=== PATIENT | female | born 1940 | race Caucasian/White ===

== ENCOUNTER 2016-08-03 08:20 | Outpatient (CLI) | payer OTHER, BC ==
[2016-08-03] MEDS ORDERED: MIDAZOLAM 2 MG/2 ML VIAL ONE (08:42)
[2016-08-03] MEDS ORDERED: fentaNYL 100 MCG/2 ML INJ ONE (08:43)
[2016-08-03] MEDS ORDERED: LIDOCAINE 1% 30 ML SDV ONE (08:47)
[2016-08-03] MEDS ORDERED: NA BICARBONATE 50 MEQ/50 ML VIAL ONE (08:47)
[2016-08-03] MEDS ORDERED: IOPAMIDOL (ISOVUE-M 300) 15 ML VIAL IV ONE ×2 (08:48→08:50)
[2016-08-03 09:30] LABS: INR 0.99 (0.83-1.16)
--- NOTE | 2016-08-03 14:07 | DX ---
Cervical Myelogram with intravenous moderate conscious sedation History: Bilateral arm weakness, gait disturbance, previous cervical fusion and lumbar fusion. Intravenous moderate sedation: After witnessed informed consent was obtained. Moderate sedation was p erformed with the uneventful intravenous administration of Versed 1.5 mg and fentanyl 100 mcg over 49 minutes, [id number] hours, under the supervision of the radiology nurse and consenting radiologist. N o immediate complications. Witnessed Consent: Witnessed informed consent was obtained after the risks, benefits, and alternativ es of cervical myelography via lumbar puncture approach. were explained to the patient and all questi ons were answered. Timeout performed. PQRS Crosscutting Measure: Tobacco use: No. Fluoroscopy time: 2.7 minutes. Dose 48.6 mGy. Technique: With the patient in prone oblique position, the patient's back was prepped with Betadine a nd alcohol solution. Lidocaine with bicarbonate was used as local anesthesia. Then, with fluoroscopic guidance, a 25-gauge spinal needle was advanced into the right L4 interlaminar space. Clear cerebros michell fluid was identified. Then, 9 mL of Isovue-M 300 were placed under fluoroscopic guidance into t he thecal sac. Needle was removed. Manual hemostasis was achieved. Patient tolerated the procedure we ll without immediate complications. Digital images were obtained in multiple projections. Patient was sent for CT imaging. Patient disposition: Discharge instructions were given. No immediate complications. Myelogram Findings intrathecal: Contrast region cervical spine. Please see CT cervical myelogram repo rt. Impression: Successful myelography.
--- NOTE | 2016-08-03 14:12 | CT ---
CT Myelogram of the cervical Spine (With Intrathecal Contrast) (With Multiplanar Reconstructions) Clinical Indications: Bilateral upper extremity weakness and gait disturbance, previous cervical fus ion. Comparison: CT myelogram of April 2013. Technique: Thinly collimated multidetector helical CT imaging of the cervical spine was reviewed in multiple planes. Contrast dose was 9 mL Isovue-M 300 intrathecally during myelogram. Study performed after lumbar myelography. Multiplanar reconstructions reviewed on [employer] workstation and performed to better evaluate alignment. Dose reduction techniques were utilized. Findings: Myelogram contrast throughout the subarachnoid space. Anterior cervical fusion plate and s crews at T5 and T7 with T6 corpectomy and prosthesis. Bilateral posterior transpedicular screws and r ods at C5, C6, and T1. Hardware appears intact. No evidence of cervical compression fractures or destructive osseous lesions. No acute spinous proces s fractures. No evidence of craniocervical stenosis or cord compression. Degenerative osteophytes at C1 and the od ontoid anteriorly without fracture. C2-C3: Mild bilateral facet arthropathy without significant central canal or neural foraminal stenosi s. C3-C4: Mild degenerative disk disease and ventral osteophytes with mild left facet arthropathy and bi lateral uncovertebral osteophytes . No neural foraminal stenosis or central canal stenosis. C4-C5: Moderate degenerative disk disease with ventral osteophytes and right paramedian dorsal disk/o steophyte complex, resulting in mild central canal stenosis with right uncovertebral osteophytes, als o resulting in mild to moderate right neural foraminal stenosis. No left neural foraminal stenosis. C5-C6: Postsurgical changes without bony central canal or neural foraminal stenosis. C6-C7: Postsurgical changes without central canal or neural foraminal stenosis. C7-T1: Postsurgical changes without central canal or neural foraminal stenosis. T1-T2: Moderate degenerative disk disease with moderate loss of disk height, predominantly ventral os teophytes. No central canal stenosis or neural foraminal stenosis. Impression: 1. Successful cervical myelogram without cord compression or deformity. 2. Postsurgical changes from C5-C6 through C7-T1, without bony central canal or neural foraminal sten osis. 3. C4-C5: Mild central canal stenosis and mild to moderate right neural foraminal stenosis, secondary to moderate degenerative disk disease with right paramedian dorsal disk/osteophyte complex and right uncovertebral osteophyte. 4. Please see above findings. 5. Moderate bilateral carotid atherosclerotic calcified plaque. Patient had carotid Doppler study on June 2016.
== END 2016-08-03 11:45 | disposition home or self-care (01) ==
LOC: FIMAGING 08:20
PROVIDERS: ATTEND Neurological Surgery
PROC: 3E0R3KZ Introduction of Other Diagnostic Substance into Spinal Canal, Percutaneous Approach (ICD-10-PCS; principal; 2016-08-03 10:25)
DX: M50.321 Other cervical disc degeneration at C4-C5 level (principal); M99.71 Connective tissue and disc stenosis of intervertebral foramina of cervical region
CPT/HCPCS: 62284; 72126; 72240; J2250; J3010; Q9967

== ENCOUNTER → 2016-08-15 | Outpatient (CLI) | payer OTHER, BC ==
[~2016-08-15] MED LIST: IOPAMIDOL (ISOVUE-M 200) 20 ML VIAL IV ONE; LIDOCAINE 1% 30 ML SDV ONE; NA BICARBONATE 50 MEQ/50 ML VIAL ONE
--- NOTE | 2016-08-15 13:30 | CT ---
CT Myelogram of the Thoracic Spine (With Intrathecal Contrast) (With Multiplanar Reconstructions) Clinical Indications: Lower extremity weakness. Previous cervical and lumbar fusion. Back pain. Diff iculty walking. Technique: Thinly collimated multidetector helical CT imaging of the thoracic and lumbar spine was r eviewed in multiple planes. Study performed after lumbar myelography. Multiplanar reconstructions rev iewed on [employer] workstation and performed to better evaluate alignment. Dose reduction techniques wer e utilized. Findings: Myelogram contrast throughout the subarachnoid space. No thoracic compression fractures or destructive osseous lesions. Cervical fusion plate noted to the C7-T1 disk space level. No evidence of thoracic spinal cord atrophy. C7-T1: Bilateral T1 transpedicular screws through the neural foramina. Anterior fusion plate near the C7-T1 disk space level. No bony central canal or neural foraminal stenosis. T1-T2: Mild degenerative disk disease with ventral osteophytes. Minimal dorsal disk/osteophyte comple x. No central canal or neural foraminal stenosis. T2-T3: No disk herniation or stenosis. T3-T4: Mild degenerative disk disease with ventral osteophytes. No disk herniation or stenosis. T4-T5: Mild degenerative disk disease with ventral osteophytes. No disk herniation or stenosis. T5-T6: 3-mm central disk herniation, protrusion, resulting in mild central canal stenosis with mass e ffect and deformity of the ventral aspect of the cord, which is draped over the disk herniation. No s ignificant neural foraminal stenosis. T6-T7: Mild degenerative disk disease with ventral osteophytes. No disk herniation or stenosis. T7-T8: Central 4-mm disk herniation with annular tear and associated osteophytes, resulting in mild c entral canal stenosis with slight cord compression due to the cord draping over the disk herniation. No bony neural foraminal stenosis. T8-T9: Right paramedian 2-mm disk herniation, protrusion, resulting in mild central canal stenosis wi th slight deformity of the ventral right side of the thoracic spinal cord. Dorsal epidural stimulator from T8 through the T10 levels. No neural foraminal stenosis. T9-T10: Moderate degenerative disk disease with ventral osteophytes and 2-mm central disk herniation, protrusion, resulting in mild to moderate central canal stenosis with slight cord compression and de formity. No neural foraminal stenosis. T10-T11: Moderate degenerative disk disease with a right paramedian 5-mm disk herniation, protrusion, with associated osteophytes, resulting in moderate central canal stenosis with ventral right-sided f lattening and compression of the thoracic spinal cord. No significant bony neural foraminal stenosis. T11-T12: Moderate degenerative disk disease with minimal dorsal disk/osteophyte complex, resulting in minimal central canal stenosis without neural foraminal stenosis. T12-L1: Mild degenerative disk disease and mild disk bulge with mild bilateral facet arthropathy, res ulting in mild central canal stenosis without neural foraminal stenosis. Large ventral left-sided ost eophyte. A small hiatal hernia. Moderate atherosclerotic calcification at the thoracic aorta. Coronary artery calcifications partially visualized. Surgical clips in the gallbladder fossa. Impression: 1. Multilevel moderate degenerative disk disease with several disk herniations identified at T5-T6, T 7-T8, T8-T9, T9-T10, and T10-T11, worst at T10-T11, resulting in multilevel mild to moderate central canal stenosis with slight cord compression, most prominent at T7-T8 and T10-T11. 2. T10-T11: Right paramedian disk herniation with osteophytes, resulting in moderate central canal st enosis and cord compression and deformity. CT Myelogram of the Lumbar Spine (With Intrathecal Contrast) (With Multiplanar Reconstructions) Clinical Indications: Lower extremity weakness. Previous cervical and lumbar fusion. Back pain. Diff iculty walking. Technique: Thinly collimated multidetector helical CT imaging of the lumbar spine was reviewed in mu ltiple planes. Study performed after lumbar myelography. Multiplanar reconstructions reviewed on [facility] workstation and performed to better evaluate alignment. Dose reduction techniques were utilized. Findings: Myelogram contrast throughout the subarachnoid space. No lumbar compression fractures or d estructive osseous lesions. Bilateral transpedicular screws at every level from L1 through S1. Anteri or diskectomy with fusion plate and screws at L5-S1. Interbody disk fusion plugs from L1-L2 through L 4-L5. L1-L2: Previous diskectomy and posterior laminectomy with right ventral epidural soft tissue tissue. No significant central canal or neural foraminal stenosis. No evidence of arachnoiditis or nerve root clumping. Conus medullaris ends at the L2 level. Atheroscl erotic abdominal aorta. Sigmoid diverticulosis. L2-L3: Previous diskectomy and posterior laminectomies without bony central canal or neural foraminal stenosis. L3-L4: Previous diskectomy and posterior laminectomies without bony central canal or neural foraminal stenosis. L4-L5: Previous diskectomy and posterior laminectomies without bony central canal and neural foramina l stenosis. L5-S1: Previous diskectomy and posterior laminectomies with moderate bilateral facet arthropathy and dorsal osteophytes from the S1 region, resulting in mild central canal stenosis and moderate to sever e bilateral neural foraminal stenosis, left worse than right. Impression: 1. Lumbar diskectomies from L1 through S1 with transpedicular screws and fusion rods. Hardware appear s . 2. L5-S1: Bilateral facet arthropathy, resulting in mild central canal stenosis and moderate to sever e bilateral neural foraminal stenosis, left worse than right. 3. Please see above findings at specific levels.
--- NOTE | 2016-08-15 16:38 | DX ---
Lumbar and thoracic myelogram History: Back pain, lower extremity weakness, difficulty walking. Witnessed Consent: Witnessed informed consent was obtained after the risks, benefits, and alternativ es of lumbar myelography were explained to the patient and all questions were answered. Timeout performed. PQRS Cross-Cutting Measure: Tobacco use: no. Fluoroscopy time: 2.2 minutes. Dose 101 mGy. Technique: With the patient in prone oblique position, the patient's back was prepped with Betadine a nd alcohol solution. Lidocaine with bicarbonate was used as local anesthesia. Then, with fluoroscopic guidance, a 25-gauge spinal needle was advanced into the L4 interlaminar space. Clear cerebrospinal fluid was identified. Then, 13 mL of [id number] were placed under fluoroscopic guidance into the th ecal sac. Needle was removed. Manual hemostasis was achieved. Patient tolerated the procedure well wi thout immediate complications. Digital images were obtained in multiple projections. Patient was sent for CT imaging. Patient disposition: Discharge instructions were given. No immediate complications. Myelogram Findings: No evidence of spinal block. There is contrast in the lumbar spine extending into the thoracic spine. Lumbosacral fusion hardware from L1 through the sacrum with transpedicular screw s and rods appearing intact. T12-L1, and L1-L2 ventral and epidural impression on the thecal sac. Yefri tral impression on the thecal sac also noted at the T10-T11 level. Impression: Successful thoracic and lumbar myelogram via lumbar puncture approach. Please see CT thor acic and lumbar spine reports.
== END ==
LOC: FIMAGING 08:06
PROVIDERS: ATTEND Neurological Surgery
PROC: B01B1ZZ Fluoroscopy of Spinal Cord using Low Osmolar Contrast (ICD-10-PCS; principal; 2016-08-15)
DX: R26.9 Unspecified abnormalities of gait and mobility (principal); Z98.1 Arthrodesis status
CPT/HCPCS: 62305; 72129; 72132; 72270; Q9966

== ENCOUNTER 2016-10-31 05:51 | Observation (INO) | payer OTHER, BC ==
[2016-10-31] MEDS ORDERED: ceFAZolin 2 GM/DEXTROSE 100 ML IV ONE (06:00)
[2016-10-31] MEDS ORDERED: LIDOCAINE 1% 5 ML SDV ID PRN (06:30)
[2016-10-31] MEDS ORDERED: LR 1,000 ML IV ONE (06:30)
[2016-10-31] MEDS ORDERED: LIDO/EPI 1% **Not for Epidural 20 ML MDV ONE (07:05)
[2016-10-31] MEDS ORDERED: BACITRACIN 50,000 UNITS/10 ML SYR IRR ONE (07:05)
[2016-10-31] MEDS ORDERED: THROMBIN (BOVINE) 5,000 UNIT VIAL TP ONE (07:05)
[2016-10-31] MEDS ORDERED: BUPIVACAINE/EPI 0.25% 30 ML SDV ONE (07:05)
[2016-10-31] MEDS ORDERED: PROPOFOL/EMULSION 500 MG/50 ML BOTTLE IV ONE (07:12)
[2016-10-31] MEDS ORDERED: fentaNYL 100 MCG/2 ML INJ ONE ×2 (07:12→08:22)
[2016-10-31] MEDS ORDERED: METHOCARBAMOL 750 MG TAB PO PRN (07:56)
[2016-10-31] MEDS ORDERED: ONDANSETRON DISINTEGRATING 4 MG TAB PO PRN (07:59)
[2016-10-31] MEDS ORDERED: NALOXONE HCL 0.4 MG/ML INJ IVP PRN (07:59)
[2016-10-31] MEDS ORDERED: HYDROCODONE/APAP 10/325 TAB PO PRN (07:59)
[2016-10-31] MEDS ORDERED: MAGNESIUM HYDROXIDE 30 ML UDCUP PO PRN (07:59)
[2016-10-31] MEDS ORDERED: diphenhydrAMINE 25 MG CAP PO PRN (07:59)
[2016-10-31] MEDS ORDERED: ACETAMINOPHEN 325 MG TAB PO PRN (07:59)
[2016-10-31] MEDS ORDERED: LACTULOSE 20 GM/30 ML UDCUP PO PRN (07:59)
[2016-10-31] MEDS ORDERED: DIAZEPAM 5 MG TAB PO PRN (07:59)
[2016-10-31] MEDS ORDERED: HYDROmorphONE/DILAUDID 1 MG/ML SYR IVP PRN (07:59)
[2016-10-31] MEDS ORDERED: morphINE PCA 30 MG/30 ML PCA IV PRN (07:59)
[2016-10-31] MEDS ORDERED: POLYETHYLENE GLYCOL 3350 17 GM PKT PO PRN (07:59)
[2016-10-31] MEDS ORDERED: ONDANSETRON 4 MG/2 ML VIAL IVP PRN (07:59)
[2016-10-31] MEDS ORDERED: BISACODYL 10 MG SUPP PR PRN (07:59)
[2016-10-31] MEDS ORDERED: DIAZEPAM 10 MG/2 ML SYR IVP PRN (07:59)
[2016-10-31] MEDS ORDERED: NS W/ 20 KCl/L 1,000 ML IV SCH (08:00)
[2016-10-31] MEDS ORDERED: Evolocumab [Repatha Syringe] 140 MG SQ SCH (08:00)
[2016-10-31] MEDS ORDERED: NON-FORMULARY NEW DRUG (Esomeprazole Mag Trihydrate [Nexium] 40 MG) PO SCH (09:00)
[2016-10-31] MEDS ORDERED: FAMOTIDINE 20 MG/NACL 50 ML IV SCH (09:00)
--- NOTE | 2016-10-31 09:25 | SOAPPROG ---
SOAP Progress Note Assessment/Plan: Post Op Visit: S: Awake and alert. NAD. Pt with expected back pain O: AFVSS/PERRLA/EOMI no droop CN 2-12 grossly intact +lt touch 5/5 BUE/BLE = CDI x 2 A/P: 76 yo female that is s/p removal of SCS -orders in place -call with any questions or concerns -take medications as directed -admit for obs overnight 10/31/16 09:22 ICD10 Worksheet Patient Problems: Problems Problem Status Onset Chronic kidney disease, stage III (moderate) Acute Non-cardiogenic pulmonary edema Acute Hypoxia Acute Narcotic overdose Acute Spinal cord stimulator dysfunction Acute - ICD10 Problem Qualifiers (1) Spinal cord stimulator dysfunction Qualifiers: Encounter type: E
--- NOTE | 2016-10-31 10:25 | GOP ---
[f rep st] OPERATIVE REPORT DATE OF OPERATION: 10/31/2016 SURGEON: Bud Hilario MD CARDIOVASCULAR OR NURSE: Fran Callahan PA-C PREOPERATIVE DIAGNOSIS: Failed spinal cord stimulator. POSTOPERATIVE DIAGNOSIS: Failed spinal cord stimulator. PROCEDURE PERFORMED: Removal of posterior paddle type spinal cord stimulator from the thoracic spin e as well as removal of right spinal cord stimulator pulse generator from the right iliac crest patrick on. FINDINGS: ESTIMATED BLOOD LOSS: 10 cc. INDICATIONS: The patient is a 76-year-old with a long history of chronic pain as well as multiple s pine fusion surgeries who desired to have her spinal cord stimulator removed she said that she was n o longer using the stimulator, and it prevented her from getting MRIs. There was nothing mechanical ly wrong with the stimulator, it simply was not providing pain relief that was satisfactory to her, and for these reasons, she wanted to have it removed. The risk of infection, as well as the risk of spinal cord injury was discussed. All of these risks were quite low with removal. She wanted to p roceed despite them. DESCRIPTION OF PROCEDURE: Patient was taken to the operating room, placed in supine position. Gene ral anesthesia was begun. She was flipped prone on the Dominik frame. Care was taken to pad all poi nts of contact. She was sterilely prepped and draped in the usual fashion. A localizing x-ray was taken. We made 2 incisions, 1 at the bottom portion of her spinal cord stimulator electrode in the thoracic region and 1 above the pulse generator. The subcutaneous tissue was dissected using a scal pel blade down to the fascia at both locations, and a plasma blade was used for all other dissection . This was to prevent electric current spread to the spinal cord itself. We removed the pulse gene rator initially and dissected the wires free from this area. Care was taken to avoid direct stimula tion of the pulse generator itself with the plasma blade. We cut the wires in the thoracic region a nd pulled these through to the pulse generator. We then dissected around the wires in the thoracic region, removed the 2 locking anchors and dissected down along the wires down to the paddle itself. We used a Kerrison punch to remove the scar tissue just above the paddle, and then delivered the pa ddle in a single piece from the thoracic area. All of the electrodes were present. A final x-ray w as taken, confirming removal of all the electrodes. We then irrigated both with antibiotic saline s olution and closed both incisions with interrupted Vicryl sutures. COMPLICATIONS: None. /[id number]/MODL
[2016-10-31] MEDS: diphenhydrAMINE 25 MG CAP PO SCH ×2 (10:37→20:08)
[2016-10-31] MEDS: INSULIN LISPRO 100 UNIT/ML SC SCH ×4 (10:37→18:43)
[2016-10-31] MEDS: CYANO/VITAMIN B12 1000 MCG TAB PO SCH (11:50)
[2016-10-31] MEDS: DULoxetine 60 MG CAP PO SCH (11:50)
[2016-10-31] MEDS: FUROSEMIDE 20 MG TAB PO SCH (11:51)
[2016-10-31] MEDS: PANTOPRAZOLE SODIUM 40 MG TAB PO SCH (12:27)
[2016-10-31] MEDS: INSULIN GLARGINE 100 UNITS/ML SYRINGE SC SCH ×2 (12:27→20:08)
[2016-10-31] MEDS: SENNOSIDES/DOCUSATE SODIUM TAB PO SCH ×2 (12:28→20:07)
[2016-10-31] MEDS: oxyCODONE IR 5 MG TAB PO PRN ×3 (14:54→21:48)
[2016-10-31] MEDS ORDERED: PRAMIPEXOLE 0.25 MG TAB PO SCH (20:00)
[2016-10-31] MEDS ORDERED: MELATONIN 3 MG TAB PO SCH (20:00)
[2016-10-31] MEDS ORDERED: METOPROLOL SUCCINATE XR 25 MG TAB PO SCH (20:00)
[2016-10-31] MEDS ORDERED: IRBESARTAN 150 MG TAB PO SCH (20:00)
[2016-10-31] MEDS ORDERED: GABAPENTIN 300 MG CAP PO SCH (20:00)
[2016-10-31] MEDS ORDERED: EZETIMIBE 10 MG TAB PO SCH (20:00)
[2016-10-31] MEDS ORDERED: FAMOTIDINE 20 MG TAB PO SCH (21:00)
[2016-10-31] MEDS: CEPACOL LOZENGE PO PRN (23:39)
[2016-11-01] MEDS: oxyCODONE IR 5 MG TAB PO PRN (04:36)
[2016-11-01] MEDS: CEPACOL LOZENGE PO PRN (04:37)
[2016-11-01 05:01] VITALS: O2SAT 95
[2016-11-01] MEDS ORDERED: LEVOTHYROXINE 200 MCG TAB PO SCH (06:00)
--- NOTE | 2016-11-01 07:18 | NEUSURGPN ---
Assessment/Plan: Assessment: 76 yo female that is s/p removal of SCS POD #1 Plan: -S/P SCS removal-pt states back is sore with regards to incision but happy that she had the surgery -PT/OT pending this am -pending dc if cleared by ancillary services this am -orders in place -call with any questions or concerns -take medications as directed -follow up with Dr Hilario in 2-3 weeks for a post op visit 10/31/16 09:22 Subjective: No new complaints or concerns. No fall/neck/chest/abd or gu complaints. No f/c/n /v/d. Pain control doing well. Objective: AFVSS/PERRLA/EOMI no droop CN 2-12 grossly intact +lt touch 5/5 BUE/BLE = CDI x 2 Neuro Check Frequency: per routine Urinary Catheter in Place: No - Physician Discussed Patient with DrMatt: Sulaiman Patient Seen by : Sulaiman Neurosurgery Physical Exam - Vitals, I&O, Labs I and O 10/31/16 11/01/16 11/02/16 05:59 05:59 05:59 Intake Total 1810 Output Total 1315 Balance 495 Intake: Oral (ml) 760 IV Intake (ml) 1000 IV Infused (ml) 50 ceFAZolin 1 GM/DEXTROSE 50 50 ml @ 200 mls/hr IV ONCE@1999 ONE Rx#: [id number] Output: Urine (ml) 1300 Toilet 1300 Estimated Blood Loss (ml) 15 Other: Number of Voids Toilet 1 Vital Signs Temp Pulse Resp BP Pulse Ox 37.1 C 50 L 16 115/49 L 95 11/01/16 05:00 11/01/16 05:00 11/01/16 05:00 11/01/16 05:00 11/01/16 05:00 ICD10 Worksheet Patient Problems: Problems Problem Status Onset Spinal cord stimulator dysfunction Acute Chronic kidney disease, stage III (moderate) Acute Hypoxia Acute Narcotic overdose Acute Non-cardiogenic pulmonary edema Acute - ICD10 Problem Qualifiers (1) Spinal cord stimulator dysfunction Qualifiers: Encounter type: E
[2016-11-01 07:32] VITALS: BP 103/41; PULSE 56; RESP 18; TEMP 99.1
[2016-11-01] MEDS: INSULIN LISPRO 100 UNIT/ML SC SCH (07:44)
[2016-11-01] MEDS: INSULIN GLARGINE 100 UNITS/ML SYRINGE SC SCH (07:45)
[2016-11-01] MEDS: PANTOPRAZOLE SODIUM 40 MG TAB PO SCH (08:48)
[2016-11-01] MEDS: FUROSEMIDE 20 MG TAB PO SCH (08:48)
[2016-11-01] MEDS: DULoxetine 60 MG CAP PO SCH (08:48)
[2016-11-01] MEDS: SENNOSIDES/DOCUSATE SODIUM TAB PO SCH (08:49)
[2016-11-01] MEDS: CYANO/VITAMIN B12 1000 MCG TAB PO SCH (08:49)
[2016-11-01] MEDS: diphenhydrAMINE 25 MG CAP PO SCH (08:50)
[2016-11-03] MEDS ORDERED: ENOXAPARIN 40 MG/0.4 ML SYR SC SCH (09:00)
--- NOTE | 2016-11-15 21:42 | GDS ---
[f rep st] DISCHARGE SUMMARY PRIMARY DIAGNOSIS: Failed spinal cord stimulator. OPERATION/PROCEDURES: Removal of posterior paddle-type spinal cord stimulator from the thoracic spi ne, as well as removal of right spinal cord stimulator pulse generator from the right iliac crest re shan. This surgery occurred with Dr. Aaron Hilario at [facility] on 10/31/2016. HOSPITAL COURSE: The patient is a 76-year-old female with a long history of chronic pain, as well a s multiple spine surgeries, who desired to have her spinal cord stimulator removed, as she stated wa s no longer using the stimulator, and it prevented her from getting MRIs. There is nothing time clock mechanic ally wrong with the stimulator, it simply was not providing pain relief that was satisfactory to her liking. She elected to proceed with removal of the hardware, understanding the risks, and she unde rwent the above-mentioned procedure on 10/31/[address] Aaron Hilario. She was admitted postoperatively, and was seen on postoperative day #1, on 11/01/2016, which she had no real complaints. She did have some mild incisional soreness, but was doing quite well. She wor ked with PT and OT, and was cleared for discharge. She will follow up with us likely in 2-3 weeks for a postoperative visit and recheck. CONSULTATIONS: None. COMPLICATIONS: None. DISCHARGE CONDITION: Stable and improved. DISCHARGE INSTRUCTIONS: Standard discharge instructions were given to the patient following removal of spinal cord stimulator. We talked about worsening symptoms, new pain, weakness, numbness, tingl ing, loss of bowel or bladder control, problems with gait or balance. She was instructed to call [facility] office if any problems or questions arise. All questions and concerns were answered. /[id number]/MODL
== END 2016-11-01 10:16 | disposition home or self-care (01) ==
LOC: F3N 05:51
PROVIDERS: ADMIT Neurological Surgery; ATTEND Neurological Surgery
PROC: 01PY0MZ Removal of Neurostimulator Lead from Peripheral Nerve, Open Approach (ICD-10-PCS; principal; 2016-10-31 07:30)
PROC: 0JPT0MZ Removal of Stimulator Generator from Trunk Subcutaneous Tissue and Fascia, Open Approach (ICD-10-PCS; principal; 2016-10-31 07:30)
DX: T85.199A Other mechanical complication of other implanted electronic stimulator of nervous system, initial encounter (principal); I25.10 Atherosclerotic heart disease of native coronary artery without angina pectoris; Z95.5 Presence of coronary angioplasty implant and graft; E11.9 Type 2 diabetes mellitus without complications; E78.5 Hyperlipidemia, unspecified; I10 Essential (primary) hypertension; I65.23 Occlusion and stenosis of bilateral carotid arteries
CPT/HCPCS: 63688; 64585; 76001; 97161; G8978; G8979; G8980; J0690; J1815; J2704; J3010

== ENCOUNTER → 2016-11-10 | Outpatient (CLI) | payer OTHER, BC | LOC: FIMAGING 18:15 | PROVIDERS: ATTEND Physician Assistant | DX: M54.5 Low back pain (principal); Z98.1 Arthrodesis status; M93.961 Osteochondropathy, unspecified, right lower leg; M17.11 Unilateral primary osteoarthritis, right knee; M23.221 Derangement of posterior horn of medial meniscus due to old tear or injury, right knee ==

== ENCOUNTER → 2016-12-06 | Outpatient (CLI) | payer OTHER, BC | LOC: FIMAGING 09:46 | PROVIDERS: ATTEND Nurse Practitioner | DX: M51.34 Other intervertebral disc degeneration, thoracic region (principal); M50.23 Other cervical disc displacement, cervicothoracic region ==

== ENCOUNTER 2016-12-20 03:45 | Emergency (ER) | payer OTHER, BC ==
[2016-12-20] MEDS ORDERED: NS 500 ML IV ONE (04:06)
[2016-12-20] MEDS ORDERED: MAGNESIUM SULF 1 GM/DEXTROSE 100 ML IV ONE (04:07)
[2016-12-20 04:08] VITALS: RESP 18; TEMP 97.9; O2SAT 94
--- NOTE | 2016-12-20 04:09 | EDPHY ---
H & P Time Seen by Provider: 12/20/16 03:57 HPI/ROS: HPI Lightheaded, may have fainted. 76-year-old female by ambulance from home. She lives at home with her . She has been suffering from chronic lower extremity cramps involving her feet and her calves bilaterally. She has tried multiple medications for these cramps. She was on a statin but was taken off of this drug. She was recently started on Flexeril as a treatment for these muscle cramps. She reports that she took a 10 mg tablet of Flexeril earlier tonight. She reports that she was up for a good part of the night with continued cramping. She reports that she attempted to stand up when she was awakened by muscle cramps and she was getting out of bed she felt lightheaded and then slid out of bed to the floor. She is not sure if she fully lost consciousness. At this time she denies any symptoms. She has had no associated chest pain, palpitations, shortness of breath or headache. No neck pain. No numbness or weakness in her extremities. ROS: Constitutional: No fever, no chills. As above. Eyes: No discharge. No changes in vision. ENT: No sore throat. No nasal congestion or rhinorrhea. Respiratory: No cough. No shortness of breath. Cardiac: No chest pain, no palpitations. Gastrointestinal: No abdominal pain, no vomiting, no diarrhea. Genitourinary: No hematuria. No dysuria or increased frequency with urination. Musculoskeletal: No back pain. No neck pain. No myalgias or arthralgias. Skin: No rashes. Neurological: No headache. No focal weakness or altered sensation. Past medical history: Hyperlipidemia, muscle cramps as noted, hypothyroidism, hypertension, type 1 diabetes, peripheral neuropathy and neuropathic pain, coronary artery disease, she is on Plavix. Primary care physician is Dr. Jyotsna Key. Social history: Lives with her . Here currently by herself. Ambulates without a walker. Nonsmoker. No alcohol. Physical Exam: General Appearance: Alert, no distress. This patient is responding to questions appropriately and in full sentences. This patient appears well- hydrated and well-nourished. Head: Normocephalic atraumatic. Eyes: Pupils equal and round no pallor or injection. No lid edema, erythema or injection. Respiratory: There are no retractions, lungs are clear to auscultation with good air movement bilaterally. Cardiovascular: Regular rate and rhythm. No murmur. Gastrointestinal: Abdomen is soft and nontender, no masses, bowel sounds normal. No focal tenderness at McBurney's point. No Mer[place] sign. Neurological: Motor sensory function is grossly intact. Cranial nerves are normal. Cerebellar function is normal. Skin: Warm and dry, no rashes. Musculoskeletal: Neck is supple and nontender. No midline cervical spine tenderness on palpation. No pain on flexion of her neck. Extremities are symmetrical. All joints range without pain or impingement. Psychiatric: No agitation. No depression. Database: EKG: EKG time is 4:14 a.m.; EKG shows a narrow complex normal sinus rhythm with a ventricular rate of 59. Borderline left axis deviation. The [place], QRS, QT intervals are within normal limits. T-wave inversions in 1 and aVL. No evidence of right heart strain. The above changes are also noted on an old EKG from July of 2015. Interpreted by me. Imaging: Procedures: Emergency department course: IV placed. She was placed on a monitor. Vital signs reviewed. Blood pressure 102/87. Vital signs otherwise normal. Patient afebrile. EKG obtained. Patient will be given 1 g of IV magnesium to see if this helps her with her muscle cramps. Patient's presentation is consistent with a non cardiac etiology of syncope. 5:00 a.m., patient re-evaluated. Sleeping but easily arousable. IV magnesium has helped her cramps. She was able to fall asleep and her cramps have subsided. Her is at the bedside. Results of her diagnostic tests were discussed with him in detail. He told me that he gave her a 2nd 10 mg Flexeril tablet because she asked for it to help stop the muscle cramps. He stated that she then became more drowsy and loopy. This is likely her reason for the near syncopal event. She is feeling much better now. She has had stable vital signs throughout her emergency department course she has had a sinus rhythm, narrow complex on her monitor. She feels comfortable going home with her and I feel she is safe for discharge. Follow-up and return to emergency department precautions were discussed with her. All of her questions were answered. She was discharged from the emergency department with her in good condition. Differential Diagnosis: The differential diagnosis on this patient includes but is not limited to vasovagal syncope/noncardiac etiology of syncope. Subarachnoid hemorrhage, pulmonary embolism, arrhythmia, acute coronary syndrome, CVA unlikely. This represents a partial list of diagnoses considered. These considerations are based on history, physical exam, past history, reassessment and diagnostic testing. Smoking Status: Never smoked Constitutional: Initial Vital Signs Temperature (C) 36.6 C 12/20/16 03:48 Heart Rate 64 12/20/16 03:48 Respiratory Rate 18 12/20/16 03:48 Blood Pressure 102/67 12/20/16 03:48 O2 Sat (%) 94 12/20/16 03:48 O2 Delivery Mode Room Air O2 (L/minute) 2 Allergies/Adverse Reactions: baclofen Allergy (Verified 08/03/16 09:08) Other-Enter Comments enalapril maleate [From Vasotec] Allergy (Verified 08/03/16 09:08) Other-Enter Comments enalaprilat dihydrate [From Vasotec] Allergy (Verified 08/03/16 09:08) Other-Enter Comments latex Allergy (Verified 08/03/16 09:08) Rash [id number]-[id number] Reductase Inhibitor Allergy (Verified 10/21/16 15:04) Itching spandex Allergy (Uncoded 08/03/16 09:09) Home Medications: Medication Instructions Recorded Cyanocobalamin [Vitamin B12 (*)] 500 mcg PO DAILY 07/27/15 Ezetimibe [Zetia 10 MG (*)] 10 mg PO DAILY@199907/27/15 Metoprolol Succinate Xr [Toprol Xl 25 mg PO DAILY@199907/27/15 25 mg (*)] DULoxetine [Cymbalta 60 MG (*)] 60 mg PO DAILY 08/21/15 Furosemide [Lasix 20 MG (*)] 20 mg PO DAILY 08/21/15 Insulin Glargine [Lantus 100 12 units SC BID 08/21/15 UNITS/ML (*)] Levothyroxine [Synthroid 200 mcg 200 mcg PO DAILY08/21/15 (*)] Melatonin [Melatonin 3 MG (*)] 3 mg PO DAILY@199908/21/15 Calcium Carb W/Vit D [Calcium Carb 500 mg PO DAILY@199910/19/16 W/Vit D 500/200 (*)] Esomeprazole Mag Trihydrate 40 mg PO DAILY 10/19/16 [Nexium] Evolocumab [Repatha Syringe] 140 mg SQ Q14D 10/19/16 Gabapentin [Neurontin 300 MG (*)] 300 mg PO DAILY@199910/19/16 Herbals/Supplements -Info Only 1 ea PO DAILY 10/19/16 Insulin Lispro [humALOG LISPRO 100 4 - 5 unit SC TIDMEAL 10/19/16 units/ml (*)] Irbesartan [Avapro 150 mg (*)] 150 mg PO DAILY@199910/19/16 Multivitamins [Multivitamin (*)] 1 each PO DAILY@119910/19/16 Pramipexole Di-HCl [Mirapex 0.25 0.25 mg PO DAILY@199910/19/16 mg (*)] diphenhydrAMINE [Benadryl 25 MG 25 mg PO BID@0800,199910/19/16 (*)] Ecotrin 12/20/16 Norvasc 12/20/16 Plavix 12/20/16 Quinine Sulfate 12/20/16 Medical Decision Making - Data Points Laboratory Results: Laboratory Results 12/20/16 03:40 12/20/16 03:40 12/20/16 12/20/16 03:40 03:40 WBC 8.62 10^3/uL 10^3/uL (3.80-9.50) RBC 4.85 10^6/uL 10^6/uL (4.18-5.33) Hgb 14.0 g/dL g/dL (12.6-16.3) Hct 42.6 % % (38.0-47.0) MCV 87.8 fL fL (81.5-99.8) MCH 28.9 pg pg (27.9-34.1) MCHC 32.9 g/dL g/dL (32.4-36.7) RDW 13.5 % % (11.5-15.2) Plt Count 267 10^3/uL 10^3/uL (150-400) MPV 9.7 fL fL (8.7-11.7) Neut % (Auto) 58.9 % % (39.3-74.2) Lymph % (Auto) 25.2 % % (15.0-45.0) Graves % (Auto) 10.1 % % (4.5-13.0) Eos % (Auto) 3.7 % % (0.6-7.6) Baso % (Auto) 1.6 % % (0.3-1.7) Nucleat RBC Rel Count 0.0 % % (0.0-0.2) Absolute Neuts (auto) 5.08 10^3/uL 10^3/uL (1.70-6.50) Absolute Lymphs (auto) 2.17 10^3/uL 10^3/uL (1.00-3.00) Absolute Monos (auto) 0.87 10^3/uL H 10^3/uL (0.30-0.80) Absolute Eos (auto) 0.32 10^3/uL 10^3/uL (0.03-0.40) Absolute Basos (auto) 0.14 10^3/uL H 10^3/uL (0.02-0.10) Absolute Nucleated RBC 0.00 10^3/uL 10^3/uL (0-0.01) Immature Gran % 0.5 % % (0.0-1.1) Immature Gran # 0.04 10^3/uL 10^3/uL (0.00-0.10) Sodium 138 mEq/L mEq/L (134-144) Potassium 4.3 mEq/L mEq/L (3.5-5.2) Chloride 99 mEq/L mEq/L (97-110) Carbon Dioxide 24 mEq/l mEq/l (22-31) Anion Gap 15 mEq/L mEq/L (8-16) BUN 33 mg/dL H mg/dL (7-23) Creatinine 1.7 mg/dL H mg/dL (0.6-1.0) Estimated GFR 29 Glucose 145 mg/dL H mg/dL (70-100) Calcium 9.7 mg/dL mg/dL (8.5-10.4) Troponin I < 0.012 ng/mL ng/mL (0-0.034) Medications Given: Discontinued Medications Sodium Chloride (Ns) 500 mls @ 0 mls/hr IV ONCE ONE PRN Reason: As Directed Stop: 12/20/16 04:07 Last Admin: 12/20/16 04:25 Dose: 500 mls Magnesium Sulfate/Dextrose (Magnesium Sulf 1 Gm (Premix)) 100 mls @ 100 mls/hr IV EDNOW ONE Stop: 12/20/16 05:06 Last Admin: 12/20/16 04:25 Dose: 100 mls Departure - Departure Disposition: Home, Routine, Self-Care Clinical Impression: Near syncope, Medication reaction Condition: Good Instructions: Near Syncope (ED) Additional Instructions: Read and follow provided instructions. Follow-up with your primary care physician Dr. Jyotsna Key, as discussed within the next week for a recheck of your kidney function. Your creatinine which is a marker of your kidney function has gone up to 1.7. Keep yourself well hydrated. Take medication as prescribed only. Flexeril, 10 mg tablets should only be taken once every 8 hours. Take no more than 10 mg at a time. Return to the emergency department for lightheadedness, chest pain, palpitations , fainting or other serious concerns. Referrals: Jyotsna Key MD [Primary Care Provider] - As per Instructions
[2016-12-20 04:14] LABS: % IMMATURE GRANULYOCYTES 0.5 % (0.0-1.1); ABSOLUTE IMMATURE GRANULOCYTES 0.04 10^3/uL (0.00-0.10); ADD DIFF? NO; ADD MORPH? NO; ADD SCAN? NO; ATYPICAL LYMPHOCYTE FLAG 0 (0-99); FRAGMENT RBC FLAG 0 (0-99); HEMATOCRIT 42.6 % (38.0-47.0); LEFT SHIFT FLG 0 (0-99); LIPEMIA HEMOLYSIS FLAG 80 (0-99); MEAN CELL HEMOGLOBIN 28.9 pg (27.9-34.1); MEAN CELL HEMOGLOBIN CONCENTR. 32.9 g/dL (32.4-36.7); MEAN CELL VOLUME 87.8 fL (81.5-99.8); MEAN PLATELET VOLUME 9.7 fL (8.7-11.7); PLATELET CLUMPS FLAG 0 (0-99); PLATELET COUNT 267 10^3/uL (150-400); RED BLOOD CELL COUNT 4.85 10^6/uL (4.18-5.33); RED CELL DISTRIBUTION WIDTH 13.5 % (11.5-15.2)
[2016-12-20 04:26] LABS: ANION GAP 15 mEq/L (8-16); CALCIUM 9.7 mg/dL (8.5-10.4); CARBON DIOXIDE 24 mEq/l (22-31); CHLORIDE 99 mEq/L (97-110); CREATININE 1.7 mg/dL (0.6-1.0); GLOMERULAR FILTRATION RATE 29; GLUCOSE 145 mg/dL (70-100); POTASSIUM 4.3 mEq/L (3.5-5.2); SODIUM 138 mEq/L (134-144)
[2016-12-20 04:38] LABS: TROPONIN I < 0.012 ng/mL (0-0.034)
[2016-12-20 05:36] VITALS: BP 118/51; PULSE 60
--- NOTE | 2016-12-20 05:53 | CPEKG ---
Heart Rate: 59 RR Interval: 1017 P-R Interval: 164 QRSD Interval: 84 QT Interval: 436 QTC Interval: 432 P [place]: 2 QRS [place]: -29 T Wave [place]: 122 EKG Severity - ABNORMAL ECG - EKG Impression: SINUS RHYTHM EKG Impression: BORDERLINE LEFT AXIS DEVIATION EKG Impression: ABNORMAL T, CONSIDER ISCHEMIA, LATERAL LEADS Electronically Signed By: Tye Helm 20-Dec-2016 05:54:29
== END 2016-12-20 05:42 | disposition home or self-care (01) ==
LOC: EDUNIT#
DX: R55 Syncope and collapse (principal); T48.1X5A Adverse effect of skeletal muscle relaxants [neuromuscular blocking agents], initial encounter; I10 Essential (primary) hypertension; E10.9 Type 1 diabetes mellitus without complications; I25.10 Atherosclerotic heart disease of native coronary artery without angina pectoris; Z91.040 Latex allergy status
CPT/HCPCS: 93005; 96365; 99284; J3475

== ENCOUNTER → 2017-05-12 | Outpatient (CLI) | payer OTHER, BC | LOC: BMCIMAGING 13:12 | PROVIDERS: ATTEND Internal Medicine | DX: Z12.31 Encounter for screening mammogram for malignant neoplasm of breast (principal); Z13.820 Encounter for screening for osteoporosis; M85.80 Other specified disorders of bone density and structure, unspecified site | CPT/HCPCS: G0202 ==

== ENCOUNTER → 2017-06-17 | Outpatient (CLI) | payer OTHER, BC | LOC: FIMAGING 15:36 | PROVIDERS: ATTEND Nurse Practitioner | DX: Z98.1 Arthrodesis status (principal) ==

== ENCOUNTER → 2017-11-11 | Outpatient (CLI) | payer OTHER, BC | LOC: BMCIMAGING 12:43 | PROVIDERS: ATTEND Emergency Medicine | DX: S93.402A Sprain of unspecified ligament of left ankle, initial encounter (principal) ==

== ENCOUNTER → 2017-11-12 | Outpatient (CLI) | payer OTHER, BC | LOC: BMCIMAGING 11:06 | PROVIDERS: ATTEND Family Medicine | DX: M79.672 Pain in left foot (principal) ==

== ENCOUNTER → 2018-03-19 | Outpatient (CLI) | payer OTHER, BC | LOC: BHFA 09:15 | PROVIDERS: ATTEND Internal Medicine Interventional Cardiology | DX: R09.89 Other specified symptoms and signs involving the circulatory and respiratory systems (principal) | CPT/HCPCS: 80307; G0483 ==

== ENCOUNTER 2018-08-16 11:37 | Emergency (ER) | payer OTHER ==
--- NOTE | 2018-08-16 12:47 | EDPHY ---
H & P Stated Complaint: Back Hx, woke @0500 neck pn "shooting" down R arm c mvmnt Time Seen by Provider: 08/16/18 12:05 HPI/ROS: CHIEF COMPLAINT: Neck pain HISTORY OF PRESENT ILLNESS: The patient presents the ED with complaints of neck pain which has been increasing over the past day. She describes a fairly sharp right-sided posterior cervical pain and pain in her trapezius area. The patient denies any acute numbness or weakness. The patient does have a history of chronic back pain status post multiple thoracic lumbar surgeries. The patient chronically wears a thoracic brace. The patient's primary care provider did recommend she stop taking narcotic medications which she had been on chronically. She has been off all narcotic medications since Monday of this week. Patient denies any history of fall or trauma. She denies any chest pain or shortness of breath. She denies additional acute complaints. REVIEW OF SYSTEMS: A comprehensive 10 point review of systems is otherwise negative aside from elements mentioned in the history of present illness. Source: Patient - Personal History Current Tetanus/Diphtheria Vaccine: Yes - Medical/Surgical History Hx Asthma: No Hx Chronic Respiratory Disease: Yes Hx Diabetes: Yes Hx Cardiac Disease: Yes Hx Renal Disease: Yes Hx Cirrhosis: No Hx Alcoholism: No Hx HIV/AIDS: No Hx Splenectomy or Spleen Trauma: No Other PMH: CAD WITH STENT, RENAL INSUFF., MULTIpLE BACKSURGERIES, URGENCY INCONTINENce, DM, JOSE LUIS, [place] - Social History Smoking Status: Never smoked - Physical Exam Exam: General Appearance: Alert, no distress Eyes: Pupils equal and round no pallor or injection ENT, Mouth: Mucous membranes moist Respiratory: There are no retractions, lungs are clear to auscultation Cardiovascular: Regular rate and rhythm Gastrointestinal: Abdomen is soft and nontender, no masses, bowel sounds normal Neurological: 5/5 strength noted bilateral upper lower extremities Skin: Warm and dry, no rashes, no evidence of shingles Musculoskeletal: Tenderness to palpation noted in the right trapezius muscle Extremities: symmetrical, full range of motion, 2+ pulses noted to be symmetric in all 4 extremities Constitutional: Initial Vital Signs Temperature (C) 37.2 C 08/16/18 11:44 Heart Rate 73 08/16/18 11:44 Respiratory Rate 18 08/16/18 11:44 Blood Pressure 159/117 H 08/16/18 11:44 O2 Sat (%) 91 L 08/16/18 11:44 O2 Delivery Mode Room Air Allergies/Adverse Reactions: baclofen Allergy (Verified 08/16/18 11:43) Other-Enter Comments enalapril maleate [From Vasotec] Allergy (Verified 08/16/18 11:43) Other-Enter Comments enalaprilat dihydrate [From Vasotec] Allergy (Verified 08/16/18 11:43) Other-Enter Comments latex Allergy (Verified 08/16/18 11:43) Rash [id number] Reductase Inhibitor Allergy (Verified 08/16/18 11:43) Itching spandex Allergy (Uncoded 08/03/16 09:09) Home Medications: Medication Instructions Recorded Cyanocobalamin [Vitamin B12 (*)] 500 mcg PO DAILY 07/27/15 Ezetimibe [Zetia 10 MG (*)] 10 mg PO DAILY@199907/27/15 Metoprolol Succinate Xr [Toprol Xl 25 mg PO DAILY@199907/27/15 25 mg (*)] DULoxetine [Cymbalta 60 MG (*)] 60 mg PO DAILY 08/21/15 Furosemide [Lasix 20 MG (*)] 20 mg PO DAILY 08/21/15 Insulin Glargine [Lantus 100 12 units SC BID 08/21/15 UNITS/ML] Levothyroxine [Synthroid 200 mcg 200 mcg PO DAILY08/21/15 (*)] Melatonin [Melatonin 3 MG (*)] 3 mg PO DAILY@199908/21/15 Calcium Carb W/Vit D [Calcium Carb 500 mg PO DAILY@199910/19/16 W/Vit D 500/200 (*)] Esomeprazole Mag Trihydrate 40 mg PO DAILY 10/19/16 [Nexium] Evolocumab [Repatha Syringe] 140 mg SQ Q14D 10/19/16 Gabapentin [Neurontin 300 MG (*)] 300 mg PO DAILY@199910/19/16 Herbals/Supplements -Info Only 1 ea PO DAILY 10/19/16 Insulin Lispro [humALOG LISPRO 100 4 - 5 unit SC TIDMEAL 10/19/16 units/ml (*)] Irbesartan [Avapro 150 mg (*)] 150 mg PO DAILY@199910/19/16 Multivitamins [Multivitamin (*)] 1 each PO DAILY@1200 10/19/16 Pramipexole Di-HCl [Mirapex 0.25 0.25 mg PO DAILY@199910/19/16 mg (*)] diphenhydrAMINE [Benadryl 25 MG 25 mg PO BID@0800,199910/19/16 (*)] Ecotrin 12/20/16 Norvasc 12/20/16 Plavix 12/20/16 Quinine Sulfate 12/20/16 Medical Decision Making ED Course/Re-evaluation: Patient presents to the ED with a right trapezius muscle strain in the setting of recent discontinuing of narcotic medications. Patient will be given a prescription for Flexeril and lidocaine patches. Patient is neurologically intact. She has reproducible tenderness on exam. There is nothing to suggest a neurosurgical emergency. The patient has no risk factors for vertebral dissection. Patient is advised to return to the ED for the development of any acute numbness or weakness. She will follow up with her primary care provider as scheduled. Departure - Departure Disposition: Home, Routine, Self-Care Clinical Impression: Trapezius muscle spasm Condition: Good Instructions: Musculoskeletal Pain (ED) Additional Instructions: 1. Take Ibuprofen or Motrin 600 mg by mouth three times a day. 2. Flexeril as needed for muscle spasm. 3. Lidocaine patches as directed. 4. Please return to emergency department for markedly worsening symptoms or other concerns. Referrals: Jyotsna Key MD [Primary Care Provider] - As per Instructions
[2018-08-16 13:03] VITALS: BP 152/63
== END 2018-08-16 13:03 | disposition home or self-care (01) ==
DX: M62.838 Other muscle spasm (principal)